=== PATIENT | female | born 1965 | race Hispanic/Latino ===

== ENCOUNTER 2017-07-04 18:58 | Emergency (ER) | payer MEDICAID, OTHER ==
[2017-07-04 19:45] LABS: Basophils % (Auto) 0.6 % (0.0-1.8); Eosinophils % (Auto) 1.4 % (0.0-4.3); Hematocrit 41.7 % (30.3-42.9); Hemoglobin 13.7 gm/dl (10.1-14.3); Mean Corpuscular HGB Conc 33 % (30-34); Mean Corpuscular Hemoglobin 30 pg (28-32); Mean Corpuscular Volume 90 fl (79-97); Platelet Count 497 K/mm3 (140-440); Red Blood Count 4.63 M/mm3 (3.65-5.03); Red Cell Distribution Width 15.4 % (13.2-15.2)
[2017-07-04 20:22] LABS: Alanine Aminotransferase 23 units/L (7-56); Albumin 3.1 g/dL (3.9-5); Albumin/Globulin Ratio 1.2 %; Alkaline Phosphatase 159 units/L (35-129); Anion Gap 15 mmol/L; BUN/Creatinine Ratio 10; Blood Urea Nitrogen 5 mg/dL (7-17); Calcium 8.1 mg/dL (8.4-10.2); Carbon Dioxide 31 mmol/L (22-30); Chloride 95.7 mmol/L (98-107); Glucose 96 mg/dL (65-100); Lipase 14 units/L (13-60); Sodium 139 mmol/L (137-145); Total Protein 5.6 g/dL (6.3-8.2)
[2017-07-04 20:34] LABS: Potassium 2.8 mmol/L (3.6-5.0)
[2017-07-04 20:49] LABS: Bilirubin,Urine NEG (Negative); Blood,Urine NEG (Negative); Ketones,Urine NEG (Negative); Leukocyte Esterase,Urine NEG (Negative); Nitrite,Urine NEG (Negative); Protein,Urine <15 mg/dL mg/dL (Negative); Urobilinogen,Urine < 2.0 mg/dL (<2.0)
[2017-07-04 20:50] LABS: RBC,Urine < 1.0 /HPF (0.0-6.0)
[2017-07-05] MEDS ORDERED: K-DUR PO ONE (06:39)
[2017-07-05] MEDS ORDERED: MAG-OX PO ONE (06:40)
[2017-07-05] MEDS ORDERED: NACL 0.9% 1000 ML 2,000 ML IV ONE (06:46)
[2017-07-05] MEDS ORDERED: ZOFRAN IV ONE (06:46)
[2017-07-05] MEDS ORDERED: NACL 0.9% 500 ML 500 ML IV ONE (06:47)
[2017-07-05] MEDS ORDERED: TYLENOL PO ONE (06:47)
--- NOTE | 2017-07-05 06:51 | Emergency Department Report ---
ED General Adult HPI - General Chief complaint: Chest Pain Stated complaint: CHEST PAIN Time Seen by Provider: 07/05/17 06:38 Source: patient, RN notes reviewed Mode of arrival: Ambulatory Limitations: No Limitations - History of Present Illness Initial comments: This is a 52-year-old female who is previously on known to this provider. The patient presents to the ER with a complaint of abdominal pain. Abdominal pain is epigastric in the left lower quadrant. It has been present for approximately 1 day. It is described as crampy in nature. Positive subjective fever, no cough, no chest pain, no shortness of breath, positive dysuria. Patient endorses yellow, bilious emesis 2 yesterday. She reports that it hurts to peak, but it does not burn to urinate. No pulmonary embolus or DVT risk factors. She is explicit that she is not having chest pain, she is not having shortness of breath, but she does not feel like her COPD is acting up. -: Gradual Location: abdomen Radiation: abdomen Severity scale (0 -10): 10 Quality: aching (and cramping) Consistency: constant Improves with: medication, rest Worsens with: movement Associated Symptoms: fever/chills, loss of appetite, malaise, nausea/vomiting, weakness. denies: chest pain, cough - Related Data Home Medications Medication Instructions Recorded Confirmed Last Taken Diazepam [Valium] 10 mg PO DAILY 01/12/14 08/03/14 08/03/14 Omeprazole [PriLOSEC] 40 mg PO QDAY 01/12/14 08/04/14 08/03/14 Oxycodone HCl/Acetaminophen 1 each PO Q6HR PRN 01/12/14 08/03/14 08/03/14 [Percocet 10/325 mg] amLODIPine [Norvasc] 10 mg PO DAILY 01/12/14 08/03/14 08/03/14 Furosemide [Lasix] 40 mg PO BID 08/04/14 08/04/14 08/03/14 Metolazone 5 mg PO QDAY 08/04/14 08/04/14 08/03/14 Potassium Chloride 10 Meq [KCl 10 meq PO 4XD 08/04/14 08/04/14 08/03/14 10Meq/100Ml] Previous Rx's Medication Instructions Recorded Last Taken Type Aspirin [Aspirin Enteric Coated] 81 mg PO QDAY #30 tablet. 01/13/14 08/03/14 Rx Azithromycin [Zithromax TAB] 500 mg PO QDAY #3 tablet 08/05/14 Unknown Rx Prednisone [predniSONE 10 mg 10 mg PO .TAPER #1 tab.ds.pk 08/05/14 Unknown Rx (6-Day Pack, 21 Tabs)] Acetaminophen [Tylenol Arthritis] 650 mg PO Q6HR PRN #30 tablet.er 07/05/17 Unknown Rx Ciprofloxacin HCl [Cipro] 500 mg PO BID #14 tablet 07/05/17 Unknown Rx Magnesium Oxide 500 mg PO BID #10 capsule 07/05/17 Unknown Rx Metoclopramide [Reglan] 10 mg PO QID PRN #30 tab 07/05/17 Unknown Rx Potassium Chloride [Klor-Con] 20 meq PO QDAY #10 packet 07/05/17 Unknown Rx metroNIDAZOLE [Flagyl] 500 mg PO Q8HR #21 tablet 07/05/17 Unknown Rx Allergies Allergy/AdvReac Type Severity Reaction Status Date / Time tramadol Allergy Itching Verified 08/03/14 23:26 ED Review of Systems ROS: Stated complaint: CHEST PAIN Other details as noted in HPI ED Past Medical Hx - Past Medical History Hx Hypertension: Yes Hx Congestive Heart Failure: No Hx Diabetes: No Hx Asthma: No Hx COPD: Yes Additional medical history: anxiety chronic back pain - Surgical History Additional Surgical History: TUBAL LIGATION - Social History Smoking Status: Current Every Day Smoker Substance Use Type: None - Medications Home Medications: Home Medications Medication Instructions Recorded Confirmed Last Taken Type Diazepam [Valium] 10 mg PO DAILY 01/12/14 08/03/14 08/03/14 History Omeprazole [PriLOSEC] 40 mg PO QDAY 01/12/14 08/04/14 08/03/14 History Oxycodone HCl/Acetaminophen 1 each PO Q6HR PRN 01/12/14 08/03/14 08/03/14 History [Percocet 10/325 mg] amLODIPine [Norvasc] 10 mg PO DAILY 01/12/14 08/03/14 08/03/14 History Aspirin [Aspirin Enteric Coated] 81 mg PO QDAY #30 tablet. 01/13/14 08/03/14 08/03/14 Rx Furosemide [Lasix] 40 mg PO BID 0108/04/14 08/03/14 History Metolazone 5 mg PO QDAY 08/04/14 08/04/14 08/03/14 History Potassium Chloride 10 Meq [KCl 10 meq PO 4XD 08/04/14 08/04/14 08/03/14 History 10Meq/100Ml] Azithromycin [Zithromax TAB] 500 mg PO QDAY #3 tablet 08/05/14 Unknown Rx Prednisone [predniSONE 10 mg 10 mg PO .TAPER #1 tab.ds.pk 08/05/14 Unknown Rx (6-Day Pack, 21 Tabs)] Acetaminophen [Tylenol Arthritis] 650 mg PO Q6HR PRN #30 tablet.er 07/05/17 Unknown Rx Ciprofloxacin HCl [Cipro] 500 mg PO BID #14 tablet 07/05/17 Unknown Rx Magnesium Oxide 500 mg PO BID #10 capsule 07/05/17 Unknown Rx Metoclopramide [Reglan] 10 mg PO QID PRN #30 tab 07/05/17 Unknown Rx Potassium Chloride [Klor-Con] 20 meq PO QDAY #10 packet 07/05/17 Unknown Rx metroNIDAZOLE [Flagyl] 500 mg PO Q8HR #21 tablet 07/05/17 Unknown Rx ED Physical Exam - General Limitations: No Limitations General appearance: alert, in no apparent distress, obese - Head Head exam: Present: atraumatic, normocephalic - Eye Eye exam: Present: normal appearance, EOMI - ENT ENT exam: Present: normal exam, normal orophraynx, mucous membranes moist, normal external ear exam - Neck Neck exam: Present: normal inspection, full ROM - Respiratory Respiratory exam: Present: normal lung sounds bilaterally. Absent: respiratory distress, chest wall tenderness - Cardiovascular Cardiovascular Exam: Present: normal rhythm, tachycardia, normal heart sounds. Absent: systolic murmur, diastolic murmur, rubs, gallop - GI/Abdominal GI/Abdominal exam: Present: soft, tenderness, normal bowel sounds, other (there is diffuse abdominal tenderness, no rebound, guarding or peritoneal signs). Absent: distended, guarding, rebound, rigid, pulsatile mass - Extremities Exam Extremities exam: Present: normal inspection, normal capillary refill. Absent: pedal edema, joint swelling, calf tenderness - Back Exam Back exam: Present: normal inspection, CVA tenderness (R), CVA tenderness (L) - Neurological Exam Neurological exam: Present: alert, oriented X3, CN II-XII intact, other ( Extraocular movements intact. Tongue midline. No facial droop. Facial sensation intact to light touch in the V1, V2, V3 distribution bilaterally. 5 and 5 strength in 4 extremities.. Sensation is intact to light touch in 4 extremities.). Absent: motor sensory deficit - Psychiatric Psychiatric exam: Present: normal affect, normal mood - Skin Skin exam: Present: warm, dry, intact, normal color. Absent: rash ED Course Vital Signs 07/04/17 07/05/17 07/05/17 19:09 02:06 02:15 Temperature 99 F Pulse Rate 113 H 97 H Respiratory 20 25 H Rate Blood Pressure 130/79 109/74 Blood Pressure [Left] O2 Sat by Pulse 97 93 94 Oximetry 07/05/17 07/05/17 07/05/17 02:21 02:30 03:00 Temperature Pulse Rate 98 H 96 H Respiratory 20 24 15 Rate Blood Pressure 108/68 105/72 Blood Pressure [Left] O2 Sat by Pulse 99 89 Oximetry 07/05/17 07/05/17 07/05/17 03:30 04:00 04:30 Temperature Pulse Rate 92 H 89 Respiratory 21 22 Rate Blood Pressure 104/72 114/68 114/73 Blood Pressure [Left] O2 Sat by Pulse 99 97 100 Oximetry 07/05/17 07/05/17 07/05/17 05:00 05:30 07:28 Temperature Pulse Rate 87 90 84 Respiratory 23 25 H 16 Rate Blood Pressure 113/70 102/69 Blood Pressure 111/69 [Left] O2 Sat by Pulse 95 96 Oximetry - Reevaluation(s) Reevaluation #1: 07/05/17 07:17 Differential diagnosis, including but not limited to: Colitis, diverticulitis, urinary tract infection, intra-abdominal abscess Assessment and plan: 52-year-old female with low-grade temperature, tachycardia , leukocytosis, abdominal tenderness, concerning for intra-abdominal infection. Patient will be treated empirically long sepsis pathway with IV fluids, lactic acid, empiric antibiotics. She is also found to be hypokalemic and hypomagnesemic, and I have ordered repletion for these. The patient's facility does not have chest pain or shortness of breath, a cardiac risk stratification was performed prior to my evaluation, however based on the history and physical , I am much more concerned about an intra-abdominal process rather than an atypical presentation of ACS. Reevaluation #2: 07/05/17 09:06 The patient is reassessed. Her abdominal tenderness is improved. Her tachycardia has resolved. She is tolerating liquid feeds. CT scan of the abdomen and pelvis demonstrates nonspecific small bowel inflammatory process, infectious versus inflammatory versus possible neoplastic. Patient reports that she does not want to be admitted to the hospital because she has to special-needs individuals at home who needed her help. Extensive discussion had with the patient. Patient indicates that she is reliable to follow up as an outpatient, she further indicates that she will come back to the ER right away if and when she changes her mind. I have contacted the milking machine technician button puncher, Dr. geronimo, and discussed the patient's case with him , including her physical exam findings and CT scan findings. He is amenable to having the patient over books to follow up in outpatient gastroenterology's Department. Patient will be given a copy of her CAT scan report, she will be discharged with prescriptions for pain medication, nausea medication, antibiotics and potassium/magnesium repletion. Patient is instructed to follow-up in 48 hours for repeat checkup. She will be discharged at this time. Return precautions are reviewed. The patient is reliable, and she and I have reached this decision together, through shared decision making ED Medical Decision Making - Lab Data Result diagrams: 07/04/17 19:27 07/04/17 19:24 Vital Signs 07/04/17 07/05/17 07/05/17 19:09 02:06 02:15 Temperature 99 F Pulse Rate 113 H 97 H Respiratory 20 25 H Rate Blood Pressure 130/79 109/74 O2 Sat by Pulse 97 93 94 Oximetry 07/05/17 07/05/17 07/05/17 02:21 02:30 03:00 Temperature Pulse Rate 98 H 96 H Respiratory 20 24 15 Rate Blood Pressure 108/68 105/72 O2 Sat by Pulse 99 89 Oximetry 07/05/17 07/05/17 07/05/17 03:30 04:00 04:30 Temperature Pulse Rate 92 H 89 Respiratory 21 22 Rate Blood Pressure 104/72 114/68 114/73 O2 Sat by Pulse 99 97 100 Oximetry 07/05/17 07/05/17 05:00 05:30 Temperature Pulse Rate 87 90 Respiratory 23 25 H Rate Blood Pressure 113/70 102/69 O2 Sat by Pulse 95 Oximetry Lab Results 07/04/17 07/04/17 07/04/17 Range/Units 19:24 19:27 20:22 WBC 18.0 H (4.5-11.0) K/mm3 RBC 4.63 (3.65-5.03) M/mm3 Hgb 13.7 (10.1-14.3) gm/dl Hct 41.7 (30.3-42.9) % MCV 90 (79-97) fl MCH 30 (28-32) pg MCHC 33 (30-34) % RDW 15.4 H (13.2-15.2) % Plt Count 497 H (140-440) K/mm3 Lymph % (Auto) 20.0 (13.4-35.0) % Wirt % (Auto) 12.1 H (0.0-7.3) % Eos % (Auto) 1.4 (0.0-4.3) % Baso % (Auto) 0.6 (0.0-1.8) % Lymph # 3.6 (1.2-5.4) K/mm3 Wirt # 2.2 H (0.0-0.8) K/mm3 Eos # 0.3 (0.0-0.4) K/mm3 Baso # 0.1 (0.0-0.1) K/mm3 Seg Neutrophils % 65.9 (40.0-70.0) % Seg Neutrophils # 11.8 H (1.8-7.7) K/mm3 Sodium 139 (137-145) mmol/L Potassium 2.8 L* (3.6-5.0) mmol/L Chloride 95.7 L (98-107) mmol/L Carbon Dioxide 31 H (22-30) mmol/L Anion Gap 15 mmol/L BUN 5 L (7-17) mg/dL Creatinine 0.5 L (0.7-1.2) mg/dL Estimated GFR > 60 ml/min BUN/Creatinine Ratio 10 % Glucose 96 (65-100) mg/dL Calcium 8.1 L (8.4-10.2) mg/dL Magnesium (1.7-2.3) mg/dL Total Bilirubin 0.20 (0.1-1.2) mg/dL AST 13 (5-40) units/L ALT 23 (7-56) units/L Alkaline Phosphatase 159 H (35-129) units/L Troponin T < 0.010 (0.00-0.029) ng/mL Total Protein 5.6 L (6.3-8.2) g/dL Albumin 3.1 L (3.9-5) g/dL Albumin/Globulin Ratio 1.2 % Lipase 14 (13-60) units/L Urine Color Yellow (Yellow) Urine Turbidity Clear (Clear) Urine pH 6.0 (5.0-7.0) Ur Specific [place] 1.010 (1.003-1.030) Urine Protein <15 mg/dl (Negative) mg/dL Urine Glucose (UA) Neg (Negative) mg/dL Urine Ketones Neg (Negative) mg/dL Urine Blood Neg (Negative) Urine Nitrite Neg (Negative) Urine Bilirubin Neg (Negative) Urine Urobilinogen < 2.0 (<2.0) mg/dL Ur Leukocyte Esterase Neg (Negative) Urine WBC (Auto) 1.0 (0.0-6.0) /HPF Urine RBC (Auto) < 1.0 (0.0-6.0) /HPF 07/04/17 07/05/17 07/05/17 Range/Units 22:46 01:09 01:09 WBC (4.5-11.0) K/mm3 RBC (3.65-5.03) M/mm3 Hgb (10.1-14.3) gm/dl Hct (30.3-42.9) % MCV (79-97) fl MCH (28-32) pg MCHC (30-34) % RDW (13.2-15.2) % Plt Count (140-440) K/mm3 Lymph % (Auto) (13.4-35.0) % Wirt % (Auto) (0.0-7.3) % Eos % (Auto) (0.0-4.3) % Baso % (Auto) (0.0-1.8) % Lymph # (1.2-5.4) K/mm3 Wirt # (0.0-0.8) K/mm3 Eos # (0.0-0.4) K/mm3 Baso # (0.0-0.1) K/mm3 Seg Neutrophils % (40.0-70.0) % Seg Neutrophils # (1.8-7.7) K/mm3 Sodium (137-145) mmol/L Potassium (3.6-5.0) mmol/L Chloride (98-107) mmol/L Carbon Dioxide (22-30) mmol/L Anion Gap mmol/L BUN (7-17) mg/dL Creatinine (0.7-1.2) mg/dL Estimated GFR ml/min BUN/Creatinine Ratio % Glucose (65-100) mg/dL Calcium (8.4-10.2) mg/dL Magnesium 1.60 L (1.7-2.3) mg/dL Total Bilirubin (0.1-1.2) mg/dL AST (5-40) units/L ALT (7-56) units/L Alkaline Phosphatase (35-129) units/L Troponin T < 0.010 < 0.010 (0.00-0.029) ng/mL Total Protein (6.3-8.2) g/dL Albumin (3.9-5) g/dL Albumin/Globulin Ratio % Lipase (13-60) units/L Urine Color (Yellow) Urine Turbidity (Clear) Urine pH (5.0-7.0) Ur Specific [place] (1.003-1.030) Urine Protein (Negative) mg/dL Urine Glucose (UA) (Negative) mg/dL Urine Ketones (Negative) mg/dL Urine Blood (Negative) Urine Nitrite (Negative) Urine Bilirubin (Negative) Urine Urobilinogen (<2.0) mg/dL Ur Leukocyte Esterase (Negative) Urine WBC (Auto) (0.0-6.0) /HPF Urine RBC (Auto) (0.0-6.0) /HPF - EKG Data -: EKG Interpreted by Al - EKG Data 07/05/17 07:19 Sinus tachycardia, 107 beats per minute, poor R progression, motion artifact, not morphologically consistent with ST elevation myocardial infarction, repeat EKG unchanged, appears grossly unchanged from prior. - Radiology Data Radiology results: pending Critical care attestation.: If time is entered above; I have spent that time in minutes in the direct care of this critically ill patient, excluding procedure time. ED Disposition Clinical Impression: Abdominal pain Disposition: DC-01 TO HOME OR SELFCARE Is pt being admited?: No Does the pt Need Aspirin: No Condition: Stable Additional Instructions: Take the pain medication, nausea medication, antibiotics as directed. Do not consume alcohol for the next 2 weeks. Follow up in 2 days for a repeat checkup/ evaluation. Contact [facility], and inform the front office staff that I have personally spoken to Dr. Jess geronimo, and he would like to be followed up in the office, as an overbook, by Monday. He will not be able to see you, but he indicates that one of his colleagues should be able to see you. If, for whatever reason, youre unable to secure this appointment, please return to the ER on Monday for a repeat checkup/evaluation. Return to the ER right away with new pain, worsened pain, migration of pain, fevers, chills, lethargy, irritability, projectile vomiting, confusion, change in mental status , inability to tolerate liquid feeds. Please note that not following up with gastroenterology in a timely fashion may resultant undiagnosed tumor, cancer, malignancy. Prescriptions: Acetaminophen [Tylenol Arthritis] 650 mg PO Q6HR PRN #30 tablet.er PRN Reason: Pain Ciprofloxacin HCl [Cipro] 500 mg PO BID #14 tablet Magnesium Oxide 500 mg PO BID #10 capsule Metoclopramide [Reglan] 10 mg PO QID PRN #30 tab PRN Reason: Nausea metroNIDAZOLE [Flagyl] 500 mg PO Q8HR #21 tablet Potassium Chloride [Klor-Con] 20 meq PO QDAY #10 packet Referrals: NIKKI GUAMAN MD [Primary Care Provider] - 3-5 Days JESS GERONIMO MD [Staff Physician] - 3-5 Days [facility] [Provider Group] - 3-5 Days
[2017-07-05 07:29] VITALS: BP 111/69
[2017-07-05] MEDS ORDERED: NACL ONE (07:46)
[2017-07-05] MEDS ORDERED: ZOSYN/NS 4.5GM/100ML 4.5 GM/100 ML VIAL IV ONE (08:00)
--- NOTE | 2017-07-05 08:35 | Cat Scan Report ---
CT ABDOMEN PELVIS WITH CONTRAST: HISTORY: abdominal pain, nausea and vomiting. COMPARISON: CT abdomen and pelvis with contrast report dated 10/13/12. TECHNIQUE: Helical CT in 1.25mm intervals following IV contrast. Sagittal and coronal reconstructions. FINDINGS: Lung bases: Trace right pleural effusion and minor subpleural atelectasis at the right lung base is detected. The left lung base is clear. Normal heart size. Liver: normal. Biliary system: Cholecystectomy. No biliary dilatation. Pancreas: normal. Spleen: normal. Kidneys/ureters/bladder: normal. Adrenal glands: normal. Aorta: Mild, scattered calcifications. No stenosis, dissection or aneurysm. Intestines: There are multiple loops of distal ileum demonstrating mild circumferential wall thickening and mucosal enhancement. No convincing obstruction although bowel loops measure up to 2.8 cm in diameter. The remaining bowel loops are unremarkable given no oral contrast is present in the GI system. There are several borderline to mildly enlarged mesenteric lymph nodes in the right lower quadrant. One of the largest lymph nodes measures 2.8 x 1.3 cm on image 204, series 3. Small interloop ascites is also identified in the right lower quadrant. No pneumatosis, free air or abscess. Appendix: normal. Pelvic viscera: Uterus and adnexa are unremarkable. Bilateral tubal ligation clips are noted. Musculoskeletal: normal. IMPRESSION: Multiple loops of mildly thickened terminal ileum are identified with small ascites. No convincing bowel obstruction. This could represent a nonspecific enteritis. Crohn's disease could also be considered. There are multiple borderline to mildly enlarged mesenteric lymph nodes in the right lower quadrant as well. These could be reactive in nature. I cannot entirely exclude a neoplastic process such as lymphoma. Please correlate with the patient's clinical presentation.
== END 2017-07-05 09:47 | disposition home or self-care (01) ==
LOC: ED 18:58
DX: R10.84 Generalized abdominal pain (principal); R50.9 Fever, unspecified; I10 Essential (primary) hypertension; J44.9 Chronic obstructive pulmonary disease, unspecified; F17.200 Nicotine dependence, unspecified, uncomplicated; Z88.6 Allergy status to analgesic agent; Z79.82 Long term (current) use of aspirin
CPT/HCPCS: 36415; 74177; 80053; 81001; 82140; 83690; 83735; 84484; 85025; 93005; 93010; 96365; 96375; 99284; J2405; J2543; J7030; Q9967

== ENCOUNTER 2017-07-11 13:53 | Emergency (ER) | payer OTHER ==
[2017-07-11 14:46] LABS: Basophils % (Auto) 0.6 % (0.0-1.8); Eosinophils % (Auto) 2.7 % (0.0-4.3); Hematocrit 40.2 % (30.3-42.9); Mean Corpuscular HGB Conc 32 % (30-34); Mean Corpuscular Hemoglobin 29 pg (28-32); Mean Corpuscular Volume 91 fl (79-97); Platelet Count 542 K/mm3 (140-440); Red Blood Count 4.42 M/mm3 (3.65-5.03); Red Cell Distribution Width 16.2 % (13.2-15.2); White Blood Count 14.8 K/mm3 (4.5-11.0)
[2017-07-11 15:00] LABS: Anion Gap 17 mmol/L; BUN/Creatinine Ratio 10; Blood Urea Nitrogen 5 mg/dL (7-17); Calcium 8.1 mg/dL (8.4-10.2); Carbon Dioxide 22 mmol/L (22-30); Chloride 107.6 mmol/L (98-107); Glucose 98 mg/dL (65-100); Sodium 143 mmol/L (137-145)
[2017-07-11 15:04] VITALS: BP 108/69
--- NOTE | 2017-07-11 15:47 | Emergency Department Report ---
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 She hit the side of her face, where she was wearing glasses, and fell onto the right side of her body. She denies any loss of consciousness. She complains of pain to the head, some pain to the right side of the face where she has a laceration, and some neck and back pain. She also has an abrasion to the right knee. She has a past medical history of COPD, hypertension, anxiety and some chronic back pains. She is up-to-date with her tetanus vaccination. She did not take anything and was not given anything for her symptoms prior to presentation. ED Past Medical Hx - Past Medical History Previous Medical History?: Yes Hx Hypertension: Yes Hx Congestive Heart Failure: No Hx Diabetes: No Hx Asthma: No Hx COPD: Yes Additional medical history: anxiety chronic back pain Thyroid - Surgical History Hx Cholecystectomy: Yes Additional Surgical History: TUBAL LIGATION - Social History Smoking Status: Current Every Day Smoker Substance Use Type: None - Medications Home Medications: Home Medications Medication Instructions Recorded Confirmed Last Taken Type Diazepam [Valium] 10 mg PO DAILY 01/12/14 08/03/14 08/03/14 History Omeprazole [PriLOSEC] 40 mg PO QDAY 01/12/14 08/04/14 08/03/14 History Oxycodone HCl/Acetaminophen 1 each PO Q6HR PRN 01/12/14 08/03/14 08/03/14 History [Percocet 10/325 mg] amLODIPine [Norvasc] 10 mg PO DAILY 01/12/14 08/03/14 08/03/14 History Aspirin [Aspirin Enteric Coated] 81 mg PO QDAY #30 tablet. 01/13/14 08/03/14 08/03/14 Rx Furosemide [Lasix] 40 mg PO BID 08/04/14 08/04/14 08/03/14 History Metolazone 5 mg PO QDAY 08/04/14 08/04/14 08/03/14 History Potassium Chloride 10 Meq [KCl 10 meq PO 4XD 0108/04/14 08/03/14 History 10Meq/100Ml] Azithromycin [Zithromax TAB] 500 mg PO QDAY #3 tablet 08/05/14 Unknown Rx Prednisone [predniSONE 10 mg 10 mg PO .TAPER #1 tab.ds.pk 08/05/14 Unknown Rx (6-Day Pack, 21 Tabs)] Acetaminophen [Tylenol Arthritis] 650 mg PO Q6HR PRN #30 tablet.er 07/05/17 Unknown Rx Ciprofloxacin HCl [Cipro] 500 mg PO BID #14 tablet 07/05/17 Unknown Rx Magnesium Oxide 500 mg PO BID #10 capsule 07/05/17 Unknown Rx Metoclopramide [Reglan] 10 mg PO QID PRN #30 tab 07/05/17 Unknown Rx Potassium Chloride [Klor-Con] 20 meq PO QDAY #10 packet 07/05/17 Unknown Rx metroNIDAZOLE [Flagyl] 500 mg PO Q8HR #21 tablet 07/05/17 Unknown Rx HYDROcodone/APAP 5-325 [Anton 1 each PO Q6HR PRN #10 tablet 07/11/17 Unknown Rx 5/325] Sulfamethoxazole/Trimethoprim 1 each PO BID #10 tablet 07/11/17 Unknown Rx [Bactrim DS TAB] ED Review of Systems ROS: Stated complaint: FALL Other details as noted in HPI Comment: All other systems reviewed and negative Constitutional: denies: chills, fever Eyes: denies: eye pain, eye discharge, vision change ENT: denies: ear pain, throat pain Respiratory: denies: cough, shortness of breath, wheezing Cardiovascular: denies: chest pain, palpitations Gastrointestinal: denies: abdominal pain, nausea, diarrhea Genitourinary: denies: urgency, dysuria, discharge Musculoskeletal: back pain, arthralgia Skin: other (laceration, abrasion). denies: rash Neurological: headache. denies: numbness, paresthesias Physical Exam - Physical Exam Vital Signs: Vital Signs 07/11/17 07/11/17 13:56 15:01 Pulse Rate 96 H 80 Respiratory 18 Rate Blood Pressure 134/80 108/69 Blood Pressure 134/80 [Left] O2 Sat by Pulse 96 98 Oximetry Physical Exam: GENERAL: The patient is well-developed well-nourished. HENT: Normocephalic. Atraumatic. Patient has moist mucous membranes. No septal hematoma. EYES: Extraocular motions are intact. Pupils equal reactive to light bilaterally. No nystagmus. NECK: Supple. Trachea is midline. There is some midline and bilateral paraspinal tenderness to palpation. No step-off or deformity. CHEST/LUNGS: Clear to auscultation. There is no respiratory distress noted. HEART/CARDIOVASCULAR: Regular. There is no tachycardia. There is no murmur. ABDOMEN: Abdomen is soft, nontender. Patient has normal bowel sounds. There is no abdominal distention. SKIN: Skin is warm and dry. There is a 2 cm right upper cheek laceration and flap. No current bleeding. No signs of infection or any foreign body. NEURO: The patient is awake, alert, and oriented. The patient is cooperative. The patient has no focal neurologic deficits. The patient has normal speech. MUSCULOSKELETAL: There is no tenderness or deformity. There is no limitation range of motion. There is no evidence of acute injury. Muscle strength 5 out of 5 in upper and lower extremities including EHL bilaterally. BACK: There is some midline and bilateral paraspinal tenderness palpation to the upper lumbar and mid thoracic back but no step-off or deformity. ED Course Vital Signs 07/11/17 07/11/17 13:56 15:01 Pulse Rate 96 H 80 Respiratory 18 Rate Blood Pressure 134/80 108/69 Blood Pressure 134/80 [Left] O2 Sat by Pulse 96 98 Oximetry - Laceration /Wound Repair Right Cheek Wound Location: face (right cheek) Wound Length (cm): 2 Wound's Depth, Shape: irregular, flap Wound Explored: clean Anesthesia: 1% Lidocaine Volume Anesthetic (ccs): 2 Wound Repaired With: sutures Suture Size/Type: 6:0, proline Number of Sutures: 6 Layer Closure?: No Sterile Dressing Applied?: Yes ED Medical Decision Making - Lab Data Result diagrams: 07/11/17 14:14 07/11/17 14:14 - Radiology Data Radiology results: report reviewed, image reviewed interpreted by me: X-ray of the thoracic and lumbar spine do not show any fracture, subluxation or any acute process. CT of the head does not show any acute intracranial process including no ischemia, shift, mass, bleeding or skull fracture. CT of the facial bones and CT of the cervical spine do not show any fracture or any other acute process. - Medical Decision Making This patient presents after falling off of a ramp and presents with some right- sided cheek laceration, headache, neck pain, back pain and other random body aches. Laceration was repaired. CT of the head, facial bones and cervical spine did not show any acute process. X-ray of the thoracic and lumbar spine do not show any fracture, subluxation or any acute process. Patient was reevaluated multiple times for multiple hours and says she is feeling improved. C-collar was cleared. Patient was seen ambulatory and appeared stable. Vital signs stable throughout her ED course. - Differential Diagnosis laceration, contusion, fracture, sprain Critical care attestation.: If time is entered above; I have spent that time in minutes in the direct care of this critically ill patient, excluding procedure time. ED Disposition Clinical Impression: Fall Qualifiers: Encounter type: initial encounter Qualified Code(s): W19.XXXA - Unspecified fall, initial encounter Facial laceration Qualifiers: Encounter type: initial encounter Qualified Code(s): S01.81XA - Laceration without foreign body of other part of head, initial encounter Headache Qualifiers: Headache type: unspecified Headache chronicity pattern: acute headache Intractability: not intractable Qualified Code(s): R51 - Headache Back pain Qualifiers: Back pain location: back pain in unspecified location Chronicity: unspecified Back pain laterality: bilateral Qualified Code(s): M54.9 - Dorsalgia, unspecified Contusion Qualifiers: Encounter type: initial encounter Contusion area: knee Laterality: right Qualified Code(s): S80.01XA - Contusion of right knee, initial encounter Disposition: TO HOME OR SELFCARE Is pt being admited?: No Condition: Stable Instructions: Suture Care (ED), Laceration (ED), Acute Headache (ED), Abrasion (ED), Back Pain (ED) Additional Instructions: The sutures need to be removed in 7 days and can be done so at a primary care office, urgent care or back in the emergency department. You need to be seen sooner with any signs or symptoms of infection such as surrounding redness or discharge of pus. Return to the emergency Department with any worsening of your symptoms or any acute distress. Prescriptions: HYDROcodone/APAP 5-325 [Anton 5/325] 1 each PO Q6HR PRN #10 tablet PRN Reason: Pain Sulfamethoxazole/Trimethoprim [Bactrim DS TAB] 1 each PO BID #10 tablet Referrals: LAURA HANSON MD [Primary Care Provider] - 3-5 Days Time of Disposition: 18:44
--- NOTE | 2017-07-11 16:17 | Cat Scan Report ---
FINAL REPORT PROCEDURE: CT head without contrast. TECHNIQUE: Computerized tomography of the head was performed without contrast material. HISTORY: Head trauma. COMPARISON: No prior studies are available for comparison. FINDINGS: The ventricles are normal in size. There is a patent cavum septum pellucidum. The grimaldo matter and white matter appear normal. There are no mass lesions. There is no intracranial hemorrhage. The calvarium appears intact. The mastoid air cells and paranasal sinuses are clear. IMPRESSION: Normal study.
--- NOTE | 2017-07-11 16:21 | Cat Scan Report ---
FINAL REPORT PROCEDURE: CT facial bones without contrast. TECHNIQUE: Computerized tomography of the facial bones and soft tissues with axial, sagittal and coronal sections performed from the cranial aspect of the frontal sinuses to the caudal portion of the mandible without contrast material. HISTORY: Head and facial trauma. COMPARISON: No prior studies are available for comparison. FINDINGS: The facial bones appear intact. There are no fractures identified. The orbital contents appear normal. There are no blowout type injuries. The mastoid air cells and paranasal sinuses are clear. The facial soft tissues are unremarkable. IMPRESSION: No evidence of a facial fracture.
--- NOTE | 2017-07-11 16:30 | Cat Scan Report ---
FINAL REPORT PROCEDURE: CT cervical spine without contrast. TECHNIQUE: Computerized tomography of the cervical spine was performed from the skull base to T1 without contrast material. HISTORY: Trauma, neck pain. COMPARISON: No prior studies are available for comparison. FINDINGS: The cervical vertebrae have normal height and alignment. There are no fractures. There is no subluxation. There is mild disc space narrowing at C5-6. There are small vertebral body osteophytes in the lower cervical spine. The spinal canal is adequately patent. The facet joints appear satisfactory. The neural foramina are widely patent. The prevertebral soft tissues have normal thickness. IMPRESSION: No evidence of acute cervical spine injury.
[2017-07-11] MEDS ORDERED: PERCOCET 5/325 PO ONE (17:04)
[2017-07-11] MEDS ORDERED: XYLOCAINE 1% 20 mL INFILTRATI ONE (18:07)
--- NOTE | 2017-07-11 18:11 | XRay Report ---
FINAL REPORT PROCEDURE: Thoracic spine. TECHNIQUE: Three views. HISTORY: Patient fell, back pain. COMPARISON: No prior studies are available for comparison. FINDINGS: The thoracic vertebrae have normal height and alignment. There are no fractures. There is no subluxation. The disc spaces appear adequate. IMPRESSION: No significant abnormality.
--- NOTE | 2017-07-11 21:42 | XRay Report ---
FINAL REPORT PROCEDURE: Lumbar spine. TECHNIQUE: Three views. HISTORY: Trauma, back pain. COMPARISON: None. FINDINGS: The lumbar vertebrae have normal height and alignment. There are no fractures. There is no spondylolisthesis. The disc spaces are well maintained. The sacrum and sacroiliac joints appear normal. There is atherosclerotic calcification in the abdominal aorta and common iliac arteries. IMPRESSION: No significant abnormality.
== END 2017-07-11 19:10 | disposition home or self-care (01) ==
LOC: ED 13:53
DX: S01.81XA Laceration without foreign body of other part of head, initial encounter (principal); S80.01XA Contusion of right knee, initial encounter; R51 Headache; I10 Essential (primary) hypertension; F41.9 Anxiety disorder, unspecified; F17.200 Nicotine dependence, unspecified, uncomplicated; G89.29 Other chronic pain; W01.0XXA Fall on same level from slipping, tripping and stumbling without subsequent striking against object, initial encounter; Y93.89 Activity, other specified; Y92.89 Other specified places as the place of occurrence of the external cause; Y99.8 Other external cause status
CPT/HCPCS: 36415; 70450; 70486; 72072; 72100; 72125; 80048; 85025

== ENCOUNTER 2018-03-12 19:44 | Emergency (ER) | payer SELFPAY ==
[2018-03-12 20:35] VITALS: BP 116/78
[2018-03-12] MEDS ORDERED: ASPIRIN PO ONE (20:43)
[2018-03-12 21:23] LABS: Basophils % (Auto) 0.5 % (0.0-1.8); Eosinophils # (Auto) 0.2 K/mm3 (0.0-0.4); Eosinophils % (Auto) 1.9 % (0.0-4.3); Hematocrit 42.4 % (30.3-42.9); Hemoglobin 14.2 gm/dl (10.1-14.3); Lymphocytes # (Auto) 3.3 K/mm3 (1.2-5.4); Lymphocytes % (Auto) 31.6 % (13.4-35.0); Mean Corpuscular HGB Conc 34 % (30-34); Mean Corpuscular Hemoglobin 31 pg (28-32); Mean Corpuscular Volume 92 fl (79-97); Monocytes # (Auto) 1.4 K/mm3 (0.0-0.8); Monocytes % (Auto) 13.6 % (0.0-7.3); Platelet Count 566 K/mm3 (140-440); Red Blood Count 4.61 M/mm3 (3.65-5.03); Red Cell Distribution Width 15.8 % (13.2-15.2)
[2018-03-12 21:48] LABS: BUN/Creatinine Ratio 14; Blood Urea Nitrogen 7 mg/dL (7-17); Calcium 8.8 mg/dL (8.4-10.2); Hemolysis Index 4
[2018-03-12 21:57] LABS: Bilirubin,Urine NEG (Negative); Blood,Urine NEG (Negative); Color,Urine Yellow (Yellow); Mucus,Urine FEW /HPF; Protein,Urine <15 mg/dL mg/dL (Negative); Urobilinogen,Urine < 2.0 mg/dL (<2.0)
== END 2018-03-13 02:14 | disposition left against medical advice (07) ==
LOC: ED 19:44
DX: R07.89 Other chest pain (principal); Z53.21 Procedure and treatment not carried out due to patient leaving prior to being seen by health care provider
CPT/HCPCS: 36415; 80048; 81001; 83690; 84484; 85025; 93005; 93010

== ENCOUNTER 2018-04-04 00:43 | Emergency (ER) | payer OTHER ==
[2018-04-04 01:57] VITALS: BP 123/81
[2018-04-04] MEDS ORDERED: TYLENOL PO ONE (01:58)
--- NOTE | 2018-04-04 02:53 | XRay Report ---
FINAL REPORT PROCEDURE: XR CHEST ROUTINE 2V TECHNIQUE: PA and lateral chest radiographs were obtained. CPT 31257 HISTORY: cough COMPARISON: No prior studies are available for comparison. FINDINGS: Heart: Normal. Mediastinum/Vessels: Normal. Lungs/Pleural space: Normal. Bony thorax: No acute osseous abnormality. Other: IMPRESSION: Normal examination.
== END 2018-04-04 06:08 | disposition left against medical advice (07) ==
LOC: ED 00:43
DX: R51 Headache (principal); Z53.21 Procedure and treatment not carried out due to patient leaving prior to being seen by health care provider
CPT/HCPCS: 71046

== ENCOUNTER 2018-09-18 00:08 | Emergency (ER) | payer OTHER ==
[2018-09-18] MEDS ORDERED: TYLENOL PO PRN (01:33)
[2018-09-18] MEDS ORDERED: IBUPROFEN PO PRN (01:33)
--- NOTE | 2018-09-18 01:33 | Emergency Department Report ---
ED General Adult HPI - General Chief complaint: Dizziness Stated complaint: POSS OVERDOSE Time Seen by Provider: 09/18/18 01:04 Source: patient, RN notes reviewed, old records reviewed Mode of arrival: Ambulatory Limitations: No Limitations - History of Present Illness Initial comments: This is a 53-year-old female, past history of elevated blood pressure, chronic back pain, COPD. The patient presents to the emergency room after recommendation from the [facility]. Patient reports that she accidentally took 3 extra tablets of amlodipine, over a 24-hour period. She reports her first dose was yesterday, at 8:00 in the morning, which was her typical dose. She then reports at 2:30 PM, yesterday, she took an extra tablet and a half (15 mg), and yet an additional dose at 9:00 PM yesterday evening, 15 mg (one and a half tablets.) She took a total cumulative dose of 40 mg. She reports that she has chronic back pain, and believes that she was taking Tylenol. She denies homicidality and suicidality. She denies headache, neck pain, chest pain, abdominal pain, no different shortness of breath, vomiting, diaphoresis, urinary symptoms. Her back pain is chronic, aching, decreases with rest, and decreases with pain medication. She mainly presents for medical clearance. Contacted the [place] [facility], and discussed this with Jasmin. Neither of us believe that laboratory studies are indicated, but she recommended a period of 6 hours of observation, from the time of ER presentation. Discussed this with the patient, who verbalized understanding, and is amenable to this. -: Gradual Severity scale (0 -10): 7 Associated Symptoms: denies: confusion, chest pain, cough, diaphoresis, fever/chills, headaches, loss of appetite, malaise, nausea/vomiting, rash, seizure, shortness of breath, syncope, weakness - Related Data Home Medications Medication Instructions Recorded Confirmed Last Taken RX: Omeprazole [PriLOSEC] 40 mg PO QDAY 01/12/14 03/12/18 08/03/14 RX: amLODIPine [Norvasc] 10 mg PO DAILY 01/12/14 03/12/18 08/03/14 Levothyroxine [Synthroid] 100 mcg PO QAM 03/12/18 03/12/18 Unknown Previous Rx's Medication Instructions Recorded Last Taken Type RX: Aspirin [Aspirin Enteric 81 mg PO QDAY #30 tablet. 01/13/14 08/03/14 Rx Coated] Allergies Allergy/AdvReac Type Severity Reaction Status Date / Time tramadol Allergy Itching Verified 08/03/14 23:26 ED Review of Systems ROS: Stated complaint: POSS OVERDOSE Other details as noted in HPI Constitutional: denies: malaise Eyes: denies: vision change ENT: denies: epistaxis Respiratory: denies: cough Cardiovascular: denies: chest pain Gastrointestinal: denies: abdominal pain, nausea, vomiting Genitourinary: denies: urgency, dysuria Musculoskeletal: back pain Skin: denies: lesions Neurological: denies: weakness Psychiatric: denies: homicidal thoughts, suicidal thoughts ED Past Medical Hx - Past Medical History Previous Medical History?: Yes Hx Hypertension: Yes Hx Congestive Heart Failure: No Hx Diabetes: No Hx GERD: Yes Hx Asthma: No Hx COPD: Yes Additional medical history: anxiety chronic back pain hypothyroid - Surgical History Past Surgical History?: Yes Hx Cholecystectomy: Yes Additional Surgical History: TUBAL LIGATION - Social History Smoking Status: Current Every Day Smoker Substance Use Type: None - Medications Home Medications: Home Medications Medication Instructions Recorded Confirmed Last Taken Type RX: Omeprazole [PriLOSEC] 40 mg PO QDAY 01/12/14 03/12/18 08/03/14 History RX: amLODIPine [Norvasc] 10 mg PO DAILY 01/12/14 03/12/18 08/03/14 History RX: Aspirin [Aspirin Enteric 81 mg PO QDAY #30 tablet. 01/13/14 03/12/18 08/03/14 Rx Coated] Levothyroxine [Synthroid] 100 mcg PO QAM 03/12/18 03/12/18 Unknown History ED Physical Exam - General Limitations: No Limitations General appearance: alert, in no apparent distress - Head Head exam: Present: atraumatic, normocephalic - Eye Eye exam: Present: normal appearance, EOMI. Absent: nystagmus - ENT ENT exam: Present: normal exam, normal orophraynx, mucous membranes moist, normal external ear exam - Neck Neck exam: Present: normal inspection, full ROM. Absent: tenderness, meningismus - Respiratory Respiratory exam: Present: normal lung sounds bilaterally. Absent: respiratory distress - Cardiovascular Cardiovascular Exam: Present: regular rate, normal rhythm, normal heart sounds. Absent: bradycardia, tachycardia, irregular rhythm, systolic murmur, diastolic murmur, rubs, gallop - GI/Abdominal GI/Abdominal exam: Present: soft. Absent: distended, tenderness, guarding, rebound, rigid, pulsatile mass - Extremities Exam Extremities exam: Present: normal inspection, full ROM, other (2+ pulses noted in the bilateral upper, lower extremities. Compartments soft. No long bony tenderness. The pelvis is stable.). Absent: pedal edema, joint swelling, calf tenderness - Back Exam Back exam: Present: normal inspection, full ROM. Absent: tenderness, CVA tenderness (R), paraspinal tenderness, vertebral tenderness - Neurological Exam Neurological exam: Present: alert, oriented X3, other (Extraocular movements intact. Tongue midline. No facial droop. Facial sensation intact to light touch in the V1, V2, V3 distribution bilaterally. 5 and 5 strength in 4 extremities.. Sensation is intact to light touch in 4 extremities.). Absent: motor sensory deficit - Psychiatric Psychiatric exam: Present: normal affect, normal mood - Skin Skin exam: Present: warm, dry, intact, normal color. Absent: rash ED Course Vital Signs 09/18/18 09/18/18 09/18/18 00:15 00:18 03:11 Temperature 97.6 F 97.6 F Pulse Rate 93 H 102 H 74 Respiratory 18 18 14 Rate Blood Pressure 143/83 143/83 Blood Pressure 129/77 [Left] O2 Sat by Pulse 96 96 98 Oximetry - Reevaluation(s) Reevaluation #1: 09/18/18 01:32 Differential diagnosis, including not limited to: Accidental overdose, medical clearance Assessment and plan: 53-year-old female status post inadvertent over ingestion of amlodipine. The patient is not homicidal or suicidal. Vital signs unremarkable, tachycardia resolved on my examination. Case is discussed with the Poison Control Center. No suspicion for homicidality or suicidality, and patient indicates no overdose of acetaminophen or salicylates. No indication for laboratory studies at this point in time, patient will be placed on a rn cardiac rehab, and we will observe her. Reevaluation #2: 09/18/18 01:35 care transferred to the overnight physician, Dr Nash Patricio, to follow up on observation period and if uneventful, discharge at 618 am ED Medical Decision Making - Lab Data Vital Signs 09/18/18 00:18 Temperature 97.6 F Pulse Rate 102 H Respiratory 18 Rate Blood Pressure 143/83 O2 Sat by Pulse 96 Oximetry - EKG Data -: EKG Interpreted by Me EKG shows normal: sinus rhythm Rate: normal - EKG Data 09/18/18 01:32 Sinus, 81 bpm, QTC prolonged, 468 ms, motion artifact, poor R-wave progression, abnormal EKG, not consistent with ST elevation myocardial infarction, appears grossly unchanged from prior EKG 08/03/2014. Critical care attestation.: If time is entered above; I have spent that time in minutes in the direct care of this critically ill patient, excluding procedure time. ED Disposition Clinical Impression: Overdose Disposition: DC-01 TO HOME OR SELFCARE Is pt being admited?: No Does the pt Need Aspirin: No Condition: Stable Additional Instructions: Continue outpatient medications. Be very careful when taking medications by mouth. Please make certain to not accidentally overdose on blood pressure medication in the future. Follow up with the primary care doctor within the next month. Return to the emergency room right away with new, worsened, different symptoms. Referrals: HODAN JAMES MD [Staff Physician] - as needed [facility] [Provider Group] - 7-10 days
[2018-09-18 03:12] VITALS: BP 129/77
== END 2018-09-18 08:12 | disposition home or self-care (01) ==
LOC: ED 00:08
DX: T46.1X1A Poisoning by calcium-channel blockers, accidental (unintentional), initial encounter (principal); I10 Essential (primary) hypertension; M54.9 Dorsalgia, unspecified; G89.29 Other chronic pain; J44.9 Chronic obstructive pulmonary disease, unspecified; K21.9 Gastro-esophageal reflux disease without esophagitis; F41.9 Anxiety disorder, unspecified; E03.9 Hypothyroidism, unspecified; F17.200 Nicotine dependence, unspecified, uncomplicated; Z90.49 Acquired absence of other specified parts of digestive tract; Z79.82 Long term (current) use of aspirin; Z98.51 Tubal ligation status; Z88.5 Allergy status to narcotic agent; Y92.89 Other specified places as the place of occurrence of the external cause
CPT/HCPCS: 93005; 93010; 99283